=== PATIENT | female | born 1970 | race Caucasian/White ===

== ENCOUNTER 2022-12-11 17:16 | Emergency (ER) | payer OTHER, SELFPAY ==
[2022-12-11 17:31] VITALS: BP 192/111; PULSE 71; RESP 16; TEMP 37.1; O2SAT 98; BMI 34.0
--- NOTE | 2022-12-11 19:05 | ED.DENTAL ---
HPI - Dental/Oral General Chief complaint: Dental/Oral Stated complaint: right lower back pain/fever?/headaches- root canal Time Seen by Provider: 12/11/22 19:04 Source: patient Mode of arrival: Ambulatory Limitations: no limitations History of Present Illness HPI Narrative: 52-year-old female with history of osteoporosis who presents with complaint of dental pain. Patient had a root canal earlier today, she states it took quite a long time and they told her it was difficult. She is had increasing pain since then they told her to take Tylenol and ibuprofen but did not prescribe anything stronger. She is had a little bit of swelling she states she thinks there is some bruising. She denies any swelling of her tongue, airway or throat, denies any fevers. She has developed a headache after that procedure. She states the numbness has resolved. She denies chest pain or pressure, no shortness of breath, she is had some nausea. States she does not normally get headaches, she is felt warm but not had any objective fevers. She has not had any redness swelling of her face. She also states about 3 days ago she was coughing felt a pop just below her ribcage on the right flank. She states it is lateral and 9 her back midline. Patient states since then moving cough deep inhalation all make it worse. She states she is broken ribs before she states it feels different it feels more muscular. She states movement does make it worse. Patient denies any abdominal pain no other GI or urinary symptoms. No new swelling of extremities. Patient states she is tried Tylenol and ibuprofen today without much improvement. She states she is allergic to codeine makes her nauseous but she tolerates other narcotics without issues. Patient states former smoker, no recreational drugs. Related Data Previous Rx's Medication Instructions Recorded hydrocodone 5 mg-acetaminophen 325 1 tab PO Q6H PRN pain #7 tabs 12/11/22 mg tablet ondansetron 4 mg disintegrating 4 mg PO QID PRN nausea and 12/11/22 tablet vomiting #7 tabs Allergies Allergy/AdvReac Type Severity Reaction Status Date / Time acetaminophen Allergy Verified 12/11/22 17:31 [From Tylenol-Codeine] codeine Allergy Verified 12/11/22 17:31 [From Tylenol-Codeine] Penicillins Allergy Verified 12/11/22 17:31 Review of Systems Review of Systems ROS Unobtainable: All systems reviewed & are unremarkable except as noted in HPI and below Patient History Social History Smoking Status: Former smoker Smoking Status: Former smoker Substance Use Type: does not use Exam Narrative Exam Narrative: GEN: well nourished, well appearing female, alert and oriented x 3, patient appears to be in mild distress. HEENT: Atraumatic, pupils are equal round reactive to light, extraocular movements are intact patient does have extra BUN of the left eye, nares are clear, TMs are clear with no fluid, there is no conjunctival pallor. Throat is clear without any exudates no oropharyngeal swelling, erythema, tonsillar enlargement or uvular deviation, patient does have some bruising of her right upper gum. HEART: Regular rate and rhythm without murmur, clicks, rubs. No carotid bruits, pulses are equal in upper and lower extremities LUNGS:Lungs clear to auscultation, no wheezes, rales, crackles, chest moves symmetrically ABD:bowel sounds normal, soft, non-tender, no guarding, rebound, rigidity, no masses noted, no hepatosplenomegaly :No CVA tenderness BACK: No cervical, thoracic or lumbar vertebral point tenderness. Patient has normal range of motion. Patient does have some tenderness of the left musculoskeletal region as well as tightness just below the 12th rib, Patient's gait is normal. Muscle strength is 5/5 in lower extremities. MSCL: Non-tender, no muscle atrophy, muscles strength 5/5 upper and lower extremities, full range of motion NEURO:CN 2-12 intact, sensation normal SKIN: No rash, erythema or other skin changes. Initial Vital Signs Initial Vital Signs: Vital Signs Temperature 98.8 F 12/11/22 17:31 Pulse Rate 71 12/11/22 17:31 Respiratory Rate 16 12/11/22 17:31 Blood Pressure 192/111 H 12/11/22 17:31 Pulse Oximetry 98 12/11/22 17:31 Oxygen Delivery Method Room Air 12/11/22 17:31 Course Orders Ordered: Discontinued Medications Hydrocodone Bitart/Acetaminophen (Hydrocodone/Acet 5/325 Prepack) 1 bottle MISC SEEINSTR ONE Stop: 12/11/22 19:22 Last Admin: 12/11/22 19:29 Dose: 1 bottle Documented By: [place] Ondansetron HCl (Ondansetron 4 Mg Odt Prepack) 1 bottle [facility] [place] [facility] [place] ONE Stop: 12/11/22 19:22 Last Admin: 12/11/22 19:29 Dose: 1 bottle Documented By: [place] Vital Signs Vital signs: Vital Signs - 8 hr 12/11/22 17:31 12/11/22 19:39 Temperature 98.8 F 98 F Pulse Rate 71 74 Respiratory Rate 16 20 Blood Pressure 192/111 H 164/82 H Pulse Oximetry 98 Oxygen Delivery Method Room Air Room Air MDM - Dental/Oral MDM Narrative Medical decision making narrative: 52-year-old female with headache, feels warm recently had a root canal earlier today 1 ibuprofen and Tylenol with persistent pain. Patient does not have any other red flag symptoms. She also notes that she had some coughing and felt a pop in her lateral back 3 days ago which has been persistent and slowly worsening. She is not particularly tender over the ribs themselves. She is no midline back tenderness. Suspect more musculoskeletal she is worse with movement and it is reproducible on exam she has not had any new urinary symptoms. Discussed with patient core short course of pain medication, continue her regular medications with return precautions. Discharge Plan Departure Patient Disposition: Home Clinical Impression: Toothache, History of root canal procedure, Back pain Instructions: DI for Dental Pain Activity Restrictions/Additional Instructions: Please follow up for recheck as needed. You may continue with ibuprofen up to 600 mg every 6 hours. You can take 1-2 tablets of [place] every 6 hours as needed. This medication can make you sleepy do not drive, perform hazardous activities or make any major decisions while taking it. This medication will make you constipated please take a stool softener once to twice daily until stools are soft and regular. You may take Zofran 1 tablet every 6 hours as needed for nausea. [facility] [place] Please return for fevers, rapidly worsening pain, passing out, swelling of her tongue, airway or throat, new chest pain, shortness of breath, persistent vomiting or other new or concerning changes. Prescriptions: New ondansetron 4 mg tablet,disintegrating 4 mg PO QID PRN (Reason: nausea and vomiting) Qty: 7 0RF hydrocodone-acetaminophen 5-325 mg tablet 1 tab PO Q6H PRN (Reason: pain) Qty: 7 0RF Stand Alone Forms: Patient Portal/API
--- NOTE | 2022-12-11 19:11 | PC.NURSE ---
Pt has had right flank pain when she breathes the past 48 hours, has a headache and had a root canal performed today. Her procedure lasted over 3.5hours and was only given topical anesthetic.
[2022-12-11] MEDS: ONDANSETRON 4 MG ODT PREPACK 1 BOTTLE MISC (19:29)
[2022-12-11] MEDS: HYDROCODONE/ACET 5/325 PREPACK 1 BOTTLE MISC (19:29)
[2022-12-11 19:39] VITALS: BP 164/82; PULSE 74; RESP 20; TEMP 36.6
== END 2022-12-11 19:40 | disposition home or self-care (01) ==
PROVIDERS: Emergency Provider Emergency Medicine
DX: K08.89 Other specified disorders of teeth and supporting structures (principal); M54.9 Dorsalgia, unspecified
CPT/HCPCS: 99281; 99283